=== PATIENT | male | born 1960 | race Caucasian/White ===

== ENCOUNTER 2018-08-11 07:21 | Emergency (ER) | payer BC ==
[~2018-08-11] VITALS: Ht 185.4 cm; Wt 231.3 kg
[2018-08-11] MEDS ORDERED: DIPHTH,PERTUSS(ACELL),TET TOX 0.5 ML DISP.SYRIN. VAX IM ONE (07:45)
[2018-08-11] MEDS ORDERED: LIDOCAINE 1% PF 30 ML VIAL. INJ ONE (07:45)
--- NOTE | 2018-08-11 08:01 | PHYS DOC ---
Past History Past Medical History: Diabetes, Other Past Surgical History: No Surgical History Smoking: Non-smoker Alcohol Use: None Drug Use: None Adult General Chief Complaint Chief Complaint: LACERATION/AVULSION HPI HPI Patient is a 57 year old male who presents with opening of laceration of right leg. Patient states he was not sure and hit his right leg with a metal and developed a laceration with bleeding. Patient denies other injuries and focal neuro deficit. Last tetanus immunization is unknown. Review of Systems Review of Systems Constitutional: Denies fever or chills [] Eyes: Denies change in visual acuity, redness, or eye pain [] HENT: Denies nasal congestion or sore throat [] Respiratory: Denies cough or shortness of breath [] Cardiovascular: No additional information not addressed in HPI [] GI: Denies abdominal pain, nausea, vomiting, bloody stools or diarrhea [] : Denies dysuria or hematuria [] Musculoskeletal: Denies back pain or joint pain [] Integument: Denies rash or skin lesions, reports laceration Neurologic: Denies headache, focal weakness or sensory changes [] Endocrine: Denies polyuria or polydipsia [] All other systems were reviewed and found to be within normal limits, except as documented in this note. Current Medications Current Medications Current Medications Medications (Trade) Dose Ordered Sig/Nenita Start Time Stop Time Status Last Admin Dose Admin Diphtheria/ Tetanus/Acell Pertussis (Boostrix) 0.5 ml ONCE ONCE 08/11/18 07:45 08/11/18 07:46 DC Lidocaine HCl (Lidocaine 1% Pf) 30 ml 1X ONCE 08/11/18 07:45 08/11/18 07:46 DC Allergies Allergies Allergies Coded Allergies Type Severity Reaction Last Updated Verified No Known Drug Allergies 03/03/16 No Physical Exam Physical Exam Constitutional: Well developed, well nourished, mild distress, non-toxic appearance, morbidly obese. [] HENT: Normocephalic, atraumatic. Eyes: PERRLA, EOMI, conjunctiva normal, no discharge. [] Neck: Normal range of motion, no tenderness, supple, no stridor. [] Cardiovascular:Heart rate regular rhythm, no murmur [] Lungs & Thorax: Bilateral breath sounds clear to auscultation [] Skin: Warm, dry, no erythema, no rash. [] Back: No tenderness, no CVA tenderness. [] Extremities: Flap laceration about 4 cm in right lower leg in anterior side with mild bleeding with change of color and circulation of flap part of laceration, 1 cm laceration of the second toe and 1.5 cm laceration of fourth toe in volar side, No tenderness, no cyanosis, no clubbing, ROM intact, no edema. [] Neurologic: Alert and oriented X 3, normal motor function, normal sensory function, no focal deficits noted. [] Psychologic: Affect normal, judgement normal, mood normal. [] Current Patient Data Vital Signs Vital Signs Date Time Temp Pulse Resp B/P (MAP) Pulse Ox O2 Delivery O2 Flow Rate FiO2 08/11/18 07:41 97.5 91 24 95 Room Air EKG EKG [] Radiology/Procedures Radiology/Procedures [address] [address] IMAGING REPORT Signed PATIENT: CALIN ROLDAN ACCOUNT: [id number] : 1960 LOCATION: ER AGE: 57 SEX: M EXAM STATUS: DEP ER ORD. PHYSICIAN: SUSAN PRUETT MD REASON: injury PROCEDURE: FOOT RIGHT 3V History: Wound in foot. Comparison: None. Findings: AP, lateral, and oblique views of the right foot. Extremity is in sock, limiting evaluation of fine detail. No acute osseous abnormality is identified. No convincing osteolysis to suggest radiographic changes of osteomyelitis is seen. Mild dorsal midfoot degeneration is present. Small-moderate plantar calcaneal enthesophyte is seen. Small Achilles tendon insertional enthesophyte is present. There is evidence of soft tissue swelling of the foot, especially along the dorsal aspect. Impression: 1. Soft tissue swelling. 2. No acute osseous abnormality identified. Electronically signed by: Ravi Prather MD (08/11/2018 10:54 AM) [facility] DICTATED AND SIGNED BY: RAVI PRATHER MD DATE: 08/11/18 1052 CC: SUSAN PRUETT MD; CARA RICARDO ~ Course & Med Decision Making Course & Med Decision Making Pertinent Imaging studies reviewed. (See chart for details) discharge: I've spoken with the patient and/or caregivers. I've explained the patient's condition, diagnosis and treatment plan based on information available to me at this time. I've answered the patient's and/or caregivers questions and addressed any concerns. The patient and/or caregivers have a good understanding the patient's diagnosis, condition and treatment plan as can be expected at this point. Vital signs have been stabilized. The patient's condition is stable for discharge from the emergency department. The patient will pursue further outpatient evaluation with her primary care provider or other designated consulting physician as outlined in the discharge instructions. Patient and/or caregivers are agreeable to this plan of care and follow-up instructions have been explained in detail. The patient and/or caregivers have received these instructions in written format and expressed understanding of these discharge instructions. The patient and her caregivers are aware that if any significant change in condition or worsening of symptoms should prompt him to immediately return to this of the closest emergency department. If an emergent department is not readily available I would encourage him to call 911. Dragon Disclaimer Dragon Disclaimer This electronic medical record was generated, in whole or in part, using a voice recognition dictation system. Laceration Repair Lac Repair Indication: Right leg, right second and fourth toe] Procedure: The patient was placed in the appropriate position and 2 mL of 1% lidocaine without epinephrine was injected and trunk laceration of right lower leg and after cleaning informed and applying Dermabond 3 suture of 3-0 Ethilon was placed and pressure dressing was applied. Right second toe 1 cm laceration was repaired with Dermabond and one suture of 3 -0 Ethilon. 1. 5 centimeter laceration of fourth right toe was minimal debridement and repaired with Dermabond and 1 suture of 3-0 Ethilon. Total repaired wound length: Exam half centimeter Other Items: [OTHER ITEMS] The patient tolerated the procedure well Complications:none Departure Departure: Impression: Primary Impression: Laceration of right lower leg Additional Impressions: Laceration of fourth toe of right foot Laceration of second toe of right foot Disposition: HOME, SELF-CARE (at 0920) Condition: IMPROVED Referrals: CARA RICARDO (PCP) Patient Instructions: Laceration Care, Adult, Sutured Wound Care, Tissue Adhesive Wound Care Additional Instructions: Keep wound clean and dry Follow-up with your primary care physician in 3-5 days Return to ER if not getting better Follow-up with your physician or ER in 2 weeks for suture removal Continue home pain medication Scripts Cephalexin (KEFLEX) 500 Mg Capsule 2 CAP PO Q12HR for infection, #28 CAP Prov: SUSAN PRUETT MD 08/11/18 Problem Qualifiers SUSAN PRUETT MD Aug 11, 2018 08:01
[2018-08-11] MEDS ORDERED: CEPHALEXIN 250 MG CAPSULE PO ONE (09:00)
[2018-08-11] MEDS ORDERED: CEPH-264 PO (09:23)
[2018-08-11 10:01] VITALS: BP 143/73
--- NOTE | 2018-08-11 10:57 | RAD ---
History: Wound in foot. Comparison: None. Findings: AP, lateral, and oblique views of the right foot. Extremity is in sock, limiting evaluation of fine detail. No acute osseous abnormality is identified. No convincing osteolysis to suggest radiographic changes of osteomyelitis is seen. Mild dorsal midfoot degeneration is present. Small-moderate plantar calcaneal enthesophyte is seen. Small Achilles tendon insertional enthesophyte is present. There is evidence of soft tissue swelling of the foot, especially along the dorsal aspect. Impression: 1. Soft tissue swelling. 2. No acute osseous abnormality identified. Electronically signed by: Ravi Soliman MD (08/11/2018 10:54 AM) [place] [id number]
== END 2018-08-11 09:55 | disposition home or self-care (01) ==
LOC: ER 07:21
DX: S81.811A Laceration without foreign body, right lower leg, initial encounter (principal); S91.114A Laceration without foreign body of right lesser toe(s) without damage to nail, initial encounter; E11.9 Type 2 diabetes mellitus without complications; W26.8XXA Contact with other sharp object(s), not elsewhere classified, initial encounter; Y93.89 Activity, other specified; Y92.89 Other specified places as the place of occurrence of the external cause; Y99.8 Other external cause status
CPT/HCPCS: 12002; 73630; 90471; 90715; 99284; J2001

== ENCOUNTER 2018-09-18 09:34 | Inpatient (IN) | payer BC ==
[~2018-09-18] VITALS: Ht 185.4 cm; Wt 235.9 kg
[~2018-09-18 09:34] MED LIST: CEPH-264 PO
[2018-09-18 11:16] VITALS: BP 167/89
[2018-09-18 13:42] LABS: BASO % 0 % (0-3); EOS # 0.6 x10^3/uL (0.0-0.7); EOS % 7 % (0-3); HEMATOCRIT 39.9 % (39.0-53.0); HEMOGLOBIN 12.9 g/dL (13.0-17.5); LYMPH # 1.2 x10^3/uL (1.0-4.8); LYMPH % 14 % (24-48); MEAN CORPUSCULAR HEMOGLOBIN 28 pg (25-35); MEAN CORPUSCULAR HGB CONC 32 g/dL (31-37); MEAN CORPUSCULAR VOLUME 88 fL (79-100); MONO # 0.7 x10^3/uL (0.0-1.1); MONO % 8 % (0-9); NEUT # 6.2 x10^3uL (1.8-7.7); NEUT % 71 % (31-73); PLATELET COUNT 250 x10^3/uL (140-400); RED BLOOD COUNT 4.53 x10^6/uL (4.30-5.70); RED CELL DISTRIBUTION WIDTH 15.8 % (11.5-14.5); WHITE BLOOD COUNT 8.7 x10^3/uL (4.0-11.0)
[2018-09-18] MEDS ORDERED: CRESTOR10 MG PO (13:51)
[2018-09-18] MEDS ORDERED: MODA200T2 PO (13:51)
[2018-09-18] MEDS ORDERED: SITA1TAB11 PO (13:51)
[2018-09-18] MEDS ORDERED: CHOL20009 PO (13:51)
[2018-09-18] MEDS ORDERED: MELA3TAB2 PO (13:51)
[2018-09-18] MEDS ORDERED: CITA20TA6 PO (13:51)
[2018-09-18] MEDS ORDERED: AMLO10TA6 PO (13:51)
[2018-09-18] MEDS ORDERED: FLAX100031 PO (13:51)
[2018-09-18] MEDS ORDERED: TAMS0.4C2 PO (13:51)
[2018-09-18] MEDS ORDERED: CRAN1CAP12 PO (13:51)
[2018-09-18] MEDS ORDERED: PHEN37.53 PO (13:51)
[2018-09-18] MEDS ORDERED: OLAN10TA9 PO (13:51)
[2018-09-18] MEDS ORDERED: HYDR-2765 PO (13:51)
[2018-09-18] MEDS ORDERED: PIOG30TA41 PO (13:51)
[2018-09-18] MEDS ORDERED: PHEN37.5 PO (13:51)
[2018-09-18] MEDS ORDERED: CARV3.1230 PO (13:51)
[2018-09-18 13:58] LABS: ALBUMIN 2.7 g/dL (3.4-5.0); ALBUMIN/GLOBULIN RATIO 0.6 (1.0-1.7); CALCIUM 8.8 mg/dL (8.5-10.1); CREATININE 1.7 mg/dL (0.7-1.3); GFR 41.8; POTASSIUM 4.6 mmol/L (3.5-5.1); TOTAL BILIRUBIN 0.4 mg/dL (0.2-1.0); TOTAL PROTEIN 7.3 g/dL (6.4-8.2)
[2018-09-18 14:58] VITALS: BP 155/96
--- NOTE | 2018-09-18 15:15 | HP ---
ADMIT DATE: 09/18/2018 HISTORY OF PRESENT ILLNESS: The patient is a 57-year-old male patient, who apparently fell around Thanksgiving, sustaining wounds in his outer aspect of the right leg above his right lateral malleolus and apparently he was supposed to change the dressing on a daily basis, but has not and he was seen today in the Emergency Room where the wounds seem to have worsened with generalized erythema that extends up to below the right knee joint. He has also some wounds on the plantar aspect of his second and third toe that are very tender to touch and was admitted for further evaluation and treatment with diagnosis of cellulitis and possible osteomyelitis of his right foot. PAST MEDICAL HISTORY: Significant for type 2 diabetes, hypertension, hyperlipidemia, generalized osteoarthritis of his back and both knee joints. He has also morbid obesity with obstructive sleep apnea, on BiPAP machine. He is also known to have benign prostatic hypertrophy. PAST SURGICAL HISTORY: Significant for arthroscopic surgery of both knees and has had also colonoscopy. ALLERGIES: He has no known drug allergies. MEDICATIONS: He is currently significant for tamsulosin 0.4 mg twice a day, Crestor 10 mg at bedtime, carvedilol 3.125 mg twice a day with meals, amlodipine besylate 10 mg twice a day, hydrocodone/APAP 7.5/325 one tablet 3 times a day, citalopram hydrobromide 20 mg p.o. daily, olanzapine 10 mg at bedtime, with breakfast phentermine 37.5 daily, modafinil 200 mg twice a day, sitagliptin phosphate plus metformin for Janumet twice a day, pioglitazone 30 mg daily, cholecalciferol vitamin D 2000 international units twice a day, cranberry extract, Azo cranberry soft gel 1 tablet twice a day, flaxseed oil 2400 mg p.o. b.i.d., and melatonin 20 mg at bedtime. FAMILY HISTORY: He has 1 brother, who is younger and in a hunting accident. His father at the age of 60 because of cancer, the primary of which is unknown. His mother at age of 55 because of pancreatic cancer. SOCIAL HISTORY: He is , has 1 son. Never smoked. Drinks alcohol very occasionally. 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 REVIEW OF SYSTEMS: The patient denied any blurring of vision, cataract, glaucoma or macular degeneration. Denied any earache, tinnitus or sensorineural deafness. Denied any nosebleeds, stuffy nose or postnasal drip. Denied any sore throat, sore tongue. Denied any nausea, vomiting, diarrhea or constipation. Denied any hematemesis, melena or hematochezia. Denied any dysuria, frequency or hematuria. Actually, did complain of frequency and nocturia. Denied any chest pain, shortness of breath, orthopnea, paroxysmal nocturnal dyspnea. Denied any cough, phlegm or hemoptysis. Denied any chills, rigors, or fever. Denied any dizziness, lightheadedness, or vertigo. He is unable to stand for a long time and can walk only for very short periods of time. He is in a scoter. PHYSICAL EXAMINATION: GENERAL: When I examined him, he was sitting comfortably in his scooter, in no apparent respiratory distress. No pallor, jaundice, cyanosis or thyromegaly. No jugular venous distension. No lower limb edema. VITAL SIGNS: His heart rate was 84, blood pressure was 167/89, temperature was 97.6, respiratory rate was 20, and oxygen saturation was 98%. HEAD, EYES, EARS, NOSE AND THROAT: Showed normocephalic, atraumatic. NECK: Supple. HEART: Showed normal first and second heart sounds. No gallop, rub or murmur. CHEST: Clear to auscultation. No crepitation or rhonchi. ABDOMEN: Distended, soft, nontender. No guarding or rigidity. No organomegaly. All hernial orifice intact. Bowel sounds normal. NEUROLOGIC: He was awake, alert, responding appropriately. All cranial nerves intact. EXTREMITIES: He moves extremities without difficulty. He is able to stand for a very short period of time and walks only for very short distances, but he normally ambulates with a scooter. SKIN: Showed he had an ulcer on the outer aspect of the right leg above the lateral malleolus with erythema extending proximally and also over the dorsum of the right foot and also he has blisters below his second and third toe that could be abscess. There are very tender to touch. LABORATORY DATA: Showed a white cell count of 8700, hemoglobin 12.6, hematocrit 39.9, MCV 88, platelet count of 250,000. His chemistry showed a serum sodium 138, potassium 4.6, chloride 103, bicarbonate 30, anion gap of 5, BUN 22, creatinine 1.7, estimated GFR was 42 mL per minute. His glucose was 126, calcium was 8.8. Total bilirubin, AST, ALT, alkaline phosphatase were normal. Total protein was 7.3, albumin was 2.7. He apparently had an x-ray of his right foot on 08/11/2018, which showed that there is soft tissue swelling, no acute osseous abnormality identified. He has mild dorsal mid foot degeneration is present. Small moderate plantar calcaneal enthesophyte is seen. Small Achilles tendon insertional intensified is present. There is evidence of soft tissue swelling of the foot, especially on the dorsal aspect. PLAN: My plan is to repeat his x-ray of his right foot, do two sets of cardiac enzymes, start him on IV antibiotics and decide on further management accordingly. CHRSI MOLINA MD DR: MICHAEL/alexander JOB#: [id number] / [id number]
--- NOTE | 2018-09-18 17:40 | RAD ---
EXAM: AP and lateral views of the right foot DATE: 09/18/2018 2:48 PM INDICATION: FELL PAIN, SWELLING, CELLULITIS COMPARISON: 08/11/2018 FINDINGS: No evidence of acute fracture or dislocation. Diffuse soft tissue swelling about the lower leg. Calcaneal enthesopathy. Midfoot degenerative changes are seen. Mild edema within Kagers fat pad is also seen. IMPRESSION: 1. Soft tissue swelling about the lower leg without evidence of acute fracture or dislocation. 2. Midfoot degenerative changes are seen. 3. Calcaneal enthesopathy. Electronically signed by: Jimenez Monteiro MD (09/18/2018 5:37 PM) [facility]
[2018-09-18] MEDS ORDERED: PIP/TAZO PER PHARMACY MC PRN (18:15)
[2018-09-18] MEDS: CARVEDILOL 3.125 MG TABLET PO SCH (18:32)
[2018-09-18] MEDS: metFORMIN 500 MG TABLET PO SCH (18:32)
[2018-09-18] MEDS: HYDROcodone/APAP 7.5/325MG 1 TAB TABLET PO SCH (18:36)
[2018-09-18] MEDS ORDERED: HYDROcodone/APAP 7.5/325MG 1 TAB TABLET PO ONE (19:00)
[2018-09-18 19:34] VITALS: BP 162/78
[2018-09-18] MEDS: PIPERACILLIN/TAZOBACTAM 3.375 GM in IV NORMAL SALINE 50ML 50 ML IV SCH (19:37)
[2018-09-18] MEDS: VANCOMYCIN PER PHARMACY MC PRN (19:58)
[2018-09-18] MEDS: VANCOMYCIN 2 GM in IV NORMAL SALINE 500ML 500 ML IV SCH (20:11)
[2018-09-18] MEDS: TAMSULOSIN 0.4 MG CAP.ER.24H. PO SCH (20:17)
[2018-09-18] MEDS: MODAFINIL 100 MG TABLET PO SCH (20:17)
[2018-09-18] MEDS: amLODIPine BESYLATE 10 MG TABLET PO SCH (20:17)
[2018-09-18] MEDS: MELATONIN 3 MG TABLET PO SCH (20:17)
[2018-09-18] MEDS: ATORVASTATIN CALCIUM 20 MG TABLET PO SCH (20:18)
[2018-09-18] MEDS: CHOLECALCIFEROL (VITAMIN D3) 1,000 UNIT TABLET PO SCH (20:18)
[2018-09-18] MEDS: OLANZapine 10 MG TABLET PO SCH (20:18)
[2018-09-18] MEDS ORDERED: NON FORMULARY ITEM (Cranberry Extract/Vit C (Azo Cranberry Softgel) 1 EACH) PO SCH (21:00)
[2018-09-18] MEDS ORDERED: FLAXSEED OIL 2400 MG PO SCH (21:00)
[2018-09-18 22:44] VITALS: BP 155/72
[2018-09-19] MEDS: PIPERACILLIN/TAZOBACTAM 3.375 GM in IV NORMAL SALINE 50ML 50 ML IV SCH ×4 (00:19→17:14)
[2018-09-19 05:16] VITALS: BP 143/84
[2018-09-19] MEDS: NON FORMULARY ITEM (Phentermine Hcl 1 CAP) PO SCH (08:00)
[2018-09-19] MEDS: metFORMIN 500 MG TABLET PO SCH ×2 (08:18→17:14)
[2018-09-19] MEDS: PIOGLITAZONE 15 MG TABLET. PO SCH (08:19)
[2018-09-19] MEDS: HYDROcodone/APAP 7.5/325MG 1 TAB TABLET PO SCH ×3 (08:19→21:02)
[2018-09-19] MEDS: CHOLECALCIFEROL (VITAMIN D3) 1,000 UNIT TABLET PO SCH ×2 (08:19→20:57)
[2018-09-19] MEDS: CARVEDILOL 3.125 MG TABLET PO SCH ×2 (08:19→17:14)
[2018-09-19] MEDS: LINAGLIPTIN 5 MG TABLET PO SCH (08:19)
[2018-09-19] MEDS: CITALOPRAM 20 MG TABLET. PO SCH (08:20)
[2018-09-19] MEDS: MODAFINIL 100 MG TABLET PO SCH ×2 (08:20→20:58)
[2018-09-19] MEDS: TAMSULOSIN 0.4 MG CAP.ER.24H. PO SCH ×2 (08:20→20:57)
[2018-09-19] MEDS: VANCOMYCIN 2 GM in IV NORMAL SALINE 500ML 500 ML IV SCH ×2 (08:22→20:37)
[2018-09-19] MEDS: amLODIPine BESYLATE 10 MG TABLET PO SCH ×2 (08:22→20:58)
[2018-09-19] MEDS ORDERED: NON FORMULARY ITEM (Phentermine Hcl 1 TAB) PO SCH (09:00)
[2018-09-19 11:24] VITALS: BP 143/83
[2018-09-19] MEDS: LACTOBACILLUS RHAMNOSUS GG 1 CAPSULE. PO SCH ×2 (11:48→20:58)
[2018-09-19] MEDS ORDERED: ACETAMINOPHEN 325 MG TABLET PO PRN ×2 (12:00→13:30)
--- NOTE | 2018-09-19 12:32 | RAD ---
Indication: Nonhealing right foot wound TECHNIQUE: Grayscale, color Doppler and spectral waveform images of the right lower extremity arteries. COMPARISON: None FINDINGS: Right side: Triphasic waveform seen in the X [employer] with velocity of 99 cm/s. Triphasic waveform seen in the proximal SFA with velocity of 100 cm/s. Triphasic waveform seen in the profunda femoral artery with velocity of 40 cm/s. Monophasic waveforms seen in the mid SFA with velocity of 124 cm/s. Monophasic waveforms seen in the distal SFA with velocity 120 cm/s. Monophasic waveforms seen in the popliteal artery with velocity of 81 cm/s. Monophasic waveforms seen in the distal posterior tibial artery with velocity of 60 cm/s. The proximal posterior tibial arteries are visualized. Monophasic waveform is seen in the dorsalis pedis artery with velocity of 69 cm/s. Anterior tibial artery is not visualized. Peroneal artery is not visualized. IMPRESSION: 1. Nonvisualization of proximal PLY CUTTER, OLIVER and peroneal artery may be secondary to severe stenosis, body habitus or occlusion. Further evaluation with conventional digital subtraction angiography may be of additional benefit. 2. Moderate supra popliteal atherosclerotic disease without focal elevated velocity to suggest high-grade stenosis. Electronically signed by: Beka Jackson DO (09/19/2018 12:28 PM) [facility]
[2018-09-19 16:05] VITALS: BP 158/87
[2018-09-19 19:00] VITALS: BP 155/89
--- NOTE | 2018-09-19 19:14 | PN ---
DATE: 09/19/2018 SUBJECTIVE: The patient is resting, slightly propped up in bed, in no apparent distress. On questioning him, he apparently did complain of nocturia and inability to sleep and needed to go to the bathroom every hour. Denied any other complaint. OBJECTIVE GENERAL: On examining him, he looked well and was clearly in no apparent respiratory distress. No pallor, jaundice, cyanosis, or thyromegaly. No jugular venous distension. No lower limb edema. VITAL SIGNS: His heart rate was 100, blood pressure was 143/83, temperature was 98.2, respiratory rate 22, and oxygen saturation was 91% on room air. HEAD, EYES, EARS, NOSE AND THROAT: Showed normocephalic, atraumatic. NECK: Supple. HEART: Showed normal first and second heart sounds with no gallop, rub or murmur. CHEST: Clear to auscultation. No crepitation or rhonchi. ABDOMEN: Distended, soft, nontender. NEUROLOGIC: He was awake, alert, responding appropriately. All cranial nerves are intact. EXTREMITIES: He moves his extremities without difficulty, although he only stands for a short period of time and walks also for a short distance. He is mostly in a laure chair. His intake was 1580, no output was recorded. LABORATORY DATA AND IMAGING: Lab work showed that his white cell count was 8700, hemoglobin 12.9, hematocrit 39, MCV 88, and platelet count 250,000 with normal manual differential. His sedimentation rate was 14 mm per hour. Serum sodium 138, potassium 4.6, chloride 105, bicarbonate 30, anion gap of 5, BUN 22, creatinine 1.7, estimated GFR was 42 mL per minute, his glucose 126, calcium was 8.8. Total bilirubin, AST, ALT, alkaline phosphatase were normal. C-reactive protein was 18 mg/dL. His total protein was 7.2, albumin was 2.7. ASSESSMENT: Right lower extremity cellulitis with blisters on the plantar aspect of the right second and third toe. The x-ray showed no evidence of any bone destruction and showed that it is soft tissue swelling about the lower leg without evidence of acute fracture or dislocation, mid foot degenerative changes are seen, and calcaneal enthesopathy. Other medical problems include morbid obesity, obstructive sleep apnea, hypertension, type 2 diabetes, and given his size we could not arrange for him to have a bone scan. The x-ray was unremarkable. We will continue with IV antibiotic and we will switch him hopefully on Friday to oral antibiotic to continue treatment as an outpatient. CHRIS MOLINA MD DR: MICHAEL/alexander JOB#: [id number] / [id number]
[2018-09-19] MEDS: ATORVASTATIN CALCIUM 20 MG TABLET PO SCH (20:57)
[2018-09-19] MEDS: MELATONIN 3 MG TABLET PO SCH (20:58)
[2018-09-19] MEDS: ENOXAPARIN ** NOTE DOSE ** SYRINGE SQ SCH (20:59)
[2018-09-19] MEDS: OLANZapine 10 MG TABLET PO SCH (20:59)
[2018-09-19 23:00] VITALS: BP 150/84
[2018-09-20] MEDS: PIPERACILLIN/TAZOBACTAM 3.375 GM in IV NORMAL SALINE 50ML 50 ML IV SCH ×4 (00:13→17:52)
[2018-09-20 07:25] VITALS: BP 197/89
[2018-09-20 08:01] LABS: VANC TR 23.6 mcg/mL (10.0-20.0)
[2018-09-20] MEDS: NON FORMULARY ITEM (Phentermine Hcl 1 CAP) PO SCH (08:15)
[2018-09-20] MEDS: VANCOMYCIN PER PHARMACY MC PRN (08:18)
[2018-09-20] MEDS: LACTOBACILLUS RHAMNOSUS GG 1 CAPSULE. PO SCH ×2 (08:39→21:22)
[2018-09-20] MEDS: MODAFINIL 100 MG TABLET PO SCH ×2 (08:39→21:22)
[2018-09-20] MEDS: ENOXAPARIN ** NOTE DOSE ** SYRINGE SQ SCH ×2 (08:39→21:24)
[2018-09-20] MEDS: PIOGLITAZONE 15 MG TABLET. PO SCH (08:39)
[2018-09-20] MEDS: metFORMIN 500 MG TABLET PO SCH ×2 (08:40→17:50)
[2018-09-20] MEDS: CHOLECALCIFEROL (VITAMIN D3) 1,000 UNIT TABLET PO SCH ×2 (08:40→21:24)
[2018-09-20] MEDS: amLODIPine BESYLATE 10 MG TABLET PO SCH ×2 (08:40→21:23)
[2018-09-20] MEDS: LINAGLIPTIN 5 MG TABLET PO SCH (08:40)
[2018-09-20] MEDS: CARVEDILOL 3.125 MG TABLET PO SCH ×2 (08:40→17:51)
[2018-09-20] MEDS: TAMSULOSIN 0.4 MG CAP.ER.24H. PO SCH ×2 (08:40→21:22)
[2018-09-20] MEDS: HYDROcodone/APAP 7.5/325MG 1 TAB TABLET PO SCH ×3 (08:41→21:35)
[2018-09-20] MEDS: CITALOPRAM 20 MG TABLET. PO SCH (08:41)
[2018-09-20 11:16] VITALS: BP 174/84
[2018-09-20 14:52] VITALS: BP 148/76
--- NOTE | 2018-09-20 16:10 | PN ---
DATE: 09/20/2018 SUBJECTIVE: The patient is resting, almost flat in bed, in no apparent respiratory distress. On questioning him, he denied any complaint. The nursing staff has changed the dressing on her wounds on the back of her right thigh, right leg and the plantar aspect of the right foot. His erythema is improving. PHYSICAL EXAMINATION: GENERAL: When I examined him, he looked well and was clearly in no apparent respiratory distress, pale, but no jaundice, cyanosis, or thyromegaly. No jugular venous distention. No limb edema. VITAL SIGNS: His heart rate was 95, blood pressure was 197/89, temperature was 97.2, respiratory rate 20, and oxygen saturation was 90% on room air. HEAD, EYES, EARS, NOSE AND THROAT: Showed normocephalic, atraumatic. NECK: Supple. HEART: Showed normal first and second heart sounds. No gallop, rub or murmur. CHEST: Clear to auscultation. No crepitation or rhonchi. ABDOMEN: Distended, soft, nontender. NEUROLOGIC: He was awake, alert, responding appropriately. Cranial nerves are intact. He moves extremities spontaneously, although he is mostly bedbound, chair bound. He can stand for a very short period of time and walks very short distances. He has wounds on the posterior aspect of the right thigh, on the outer aspect of the right leg above the lateral malleolus, has also with surrounding cellulitis. He has also blisters on the plantar aspect of his second and third toe that are improving. His intake was 1600. No output was recorded. LABORATORY DATA: Showed that his blood sugars were actually well within acceptable range. His white cell count on admission 8700, hemoglobin 13, hematocrit 39, MCV 88 and platelet count 250,000. His chemistry showed that his BUN is 22 and creatinine 1.7. PLAN: My plan is to continue with the IV antibiotics for today and I will repeat all his lab works tomorrow. We will switch him to oral antibiotics tomorrow and he can be discharged home with home health. To continue treatment of his cellulitis and wounds on his right lower extremity. CHRIS MOLINA MD DR: MICHAEL/alexander JOB#: [id number] / [id number]
[2018-09-20 18:43] VITALS: BP 185/94
[2018-09-20] MEDS ORDERED: VANCOMYCIN 2 GM in IV NORMAL SALINE 500ML 500 ML IV SCH (20:00)
[2018-09-20] MEDS: MELATONIN 3 MG TABLET PO SCH (21:22)
[2018-09-20] MEDS: ATORVASTATIN CALCIUM 20 MG TABLET PO SCH (21:22)
[2018-09-20] MEDS: OLANZapine 10 MG TABLET PO SCH (21:22)
[2018-09-20 23:27] VITALS: BP 163/82
[2018-09-21] MEDS: PIPERACILLIN/TAZOBACTAM 3.375 GM in IV NORMAL SALINE 50ML 50 ML IV SCH ×3 (00:20→11:55)
[2018-09-21 06:22] LABS: HEMATOCRIT 40.3 % (39.0-53.0); HEMOGLOBIN 12.9 g/dL (13.0-17.5); RED BLOOD COUNT 4.59 x10^6/uL (4.30-5.70); RED CELL DISTRIBUTION WIDTH 15.3 % (11.5-14.5); WHITE BLOOD COUNT 12.4 x10^3/uL (4.0-11.0)
[2018-09-21 06:36] LABS: ALBUMIN 2.3 g/dL (3.4-5.0); ALBUMIN/GLOBULIN RATIO 0.5 (1.0-1.7); CALCIUM 9.2 mg/dL (8.5-10.1); CREATININE 1.4 mg/dL (0.7-1.3); GFR 52.2; POTASSIUM 4.7 mmol/L (3.5-5.1); TOTAL BILIRUBIN 0.7 mg/dL (0.2-1.0)
[2018-09-21 07:03] VITALS: BP 136/72
[2018-09-21] MEDS: NON FORMULARY ITEM (Phentermine Hcl 1 CAP) PO SCH (08:00)
[2018-09-21] MEDS: CITALOPRAM 20 MG TABLET. PO SCH (09:18)
[2018-09-21] MEDS: CHOLECALCIFEROL (VITAMIN D3) 1,000 UNIT TABLET PO SCH (09:18)
[2018-09-21] MEDS: LACTOBACILLUS RHAMNOSUS GG 1 CAPSULE. PO SCH (09:18)
[2018-09-21] MEDS: metFORMIN 500 MG TABLET PO SCH (09:18)
[2018-09-21] MEDS: LINAGLIPTIN 5 MG TABLET PO SCH (09:18)
[2018-09-21] MEDS: PIOGLITAZONE 15 MG TABLET. PO SCH (09:18)
[2018-09-21] MEDS: TAMSULOSIN 0.4 MG CAP.ER.24H. PO SCH (09:18)
[2018-09-21] MEDS: amLODIPine BESYLATE 10 MG TABLET PO SCH (09:19)
[2018-09-21] MEDS: CARVEDILOL 3.125 MG TABLET PO SCH (09:19)
[2018-09-21] MEDS: MODAFINIL 100 MG TABLET PO SCH (09:19)
[2018-09-21] MEDS: HYDROcodone/APAP 7.5/325MG 1 TAB TABLET PO SCH (09:19)
[2018-09-21] MEDS: ENOXAPARIN ** NOTE DOSE ** SYRINGE SQ SCH (09:20)
[2018-09-21 11:11] VITALS: BP 163/88
[2018-09-21] MEDS ORDERED: AMOX1TAB61 PO (12:04)
--- NOTE | 2018-09-21 12:07 | DISCH ---
HOME HEALTH DISCHARGE/MEDS DISCHARGE INFORMATION: Condition on Discharge: Stable CODE STATUS: Code Status: Full HOME HEALTH: Face to Face: I certify this patient is under my care and that I, or a nurse practitioner or physician's economist research assistant working with me, had a face to face encounter that meets the physician face to face encounter requirements with this patient on [Date]. Medical Condition(s): DJD Intermediate For: Wound Care POST DISCHARGE ORDERS: Activity Instructions for Disc: Resume previous activity CERTIFICATION STATEMENT: Certification Statement: Based on the above finding, I certify that this patient is confined to the home and needs intermittent correction care, physical therapy and/or speech therapy, or continues to need occupational therapy.~ This patient is under my care, and I have initiated the establishment of the plan of care.~ This patient will be followed by myself or a community physician who will periodically review the plan of care. DISCHARGE MEDICATIONS: Home Meds Reported Medications Cholecalciferol (Vitamin D3) (VITAMIN D3) 2,000 Unit Capsule, 2000 UNIT PO BID for Supplement 09/18/18 Cranberry Extract/Vit C (AZO CRANBERRY SOFTGEL) 1 Each Capsule, 1 EACH PO BID for Supplement 09/18/18 Flaxseed Oil (FLAXSEED) 1,000 Mg Capsule, 2400 MG PO BID for Supplement 09/18/18 Melatonin (MELATONIN) 3 Mg Tablet, 20 MG PO HS for Sleep 09/18/18 Phentermine Hcl (PHENTERMINE HCL) 37.5 Mg Tablet, 1 TAB PO DAILY for Weight Loss 09/18/18 Pioglitazone Hcl (ACTOS) 30 Mg Tablet, 1 TAB PO DAILY for Diabetes 09/18/18 Olanzapine (OLANZAPINE) 10 Mg Tablet, 1.5 TAB PO QHS for Sleepiness 09/18/18 Sitagliptin Phos/Metformin Hcl (JANUMET 50-1,000 MG TABLET) 1 Each Tablet, 1 TAB PO BID for Diabetes 09/18/18 Tamsulosin Hcl (TAMSULOSIN HCL) 0.4 Mg Cap.er.24h, 1 CAP PO BID for Urinary Retention 09/18/18 Citalopram Hydrobromide (CITALOPRAM HBR) 20 Mg Tablet, 20 MG PO DAILY for Depression 09/18/18 Rosuvastatin Calcium (CRESTOR) 10 Mg Tablet, 1 TAB PO DAILY for High Cholesterol 09/18/18 Carvedilol (CARVEDILOL ) 3.125 Mg Tablet, 3.125 MG PO BIDWMEALS for Hypertension 09/18/18 Amlodipine Besylate (AMLODIPINE BESYLATE) 10 Mg Tablet, 1 TAB PO BID for Hypertension 09/18/18 Modafinil (MODAFINIL) 200 Mg Tablet, 200 MG PO BID for Narcolepsy 09/18/18 Hydrocodone Bit/Acetaminophen (HYDROCODONE-APAP 7.5-325 ) 1 Each Tablet, 1 TAB PO TID for Pain 09/18/18 Phentermine Hcl (PHENTERMINE HCL) 37.5 Mg Capsule, 1 CAP PO DAILYWBKFT for Narcolepsy 09/18/18 CHRIS MOLINA MD Sep 21, 2018 12:07
--- NOTE | 2018-09-21 15:14 | DS ---
DATE OF DISCHARGE: 09/21/2018 HOSPITAL COURSE: The patient is a 57-year-old male patient who was admitted from his primary care physician's office directly as he has nonhealing wounds on the outer aspect of the right leg above his lateral malleolus as well as the posterior aspect of the right thigh. We did start him on IV antibiotic in the form of Zosyn and vancomycin and was seen by the wound care team. We did an x-ray of his right foot, which showed soft tissue swelling about the lower leg without evidence of acute fracture or dislocation. Midfoot degenerative changes are seen, calcaneal enthesopathy. Arterial Doppler ultrasound showed nonvisualization of the proximal posterior tibial artery, anterior tibial artery, and peroneal artery may be secondary to severe stenosis, body habitus, or occlusion. Further evaluation with conventional digital substraction angiography may be of additional benefit. Moderate ____ atherosclerotic disease without focal elevation of velocity suggesting high-grade stenosis. Clinically, the tibialis posterior and dorsalis pedis are easily palpable. His erythema has largely subsided and the plan is for him to be discharged home with home health to continue with oral antibiotic and wound care. PHYSICAL EXAMINATION: GENERAL: When I saw him today, he looked well and was clearly in no apparent respiratory distress. No pallor, jaundice, cyanosis, or thyromegaly. No jugular venous distention. No limb edema. VITAL SIGNS: His heart rate was 103, blood pressure was 163/88, temperature was 98.3, respiratory rate was 20, and oxygen saturation was 92% on 2 liters of oxygen. HEAD, EYES, EARS, NOSE AND THROAT: Normocephalic, atraumatic. NECK: Supple. HEART: Showed normal first and second sounds. No gallop, rub, or murmur. CHEST: Clear to auscultation. No crepitation or rhonchi. ABDOMEN: Distended, soft, nontender. NEUROLOGIC: He was awake, alert, responding appropriately. All cranial nerves intact. He moves extremities without difficulty. His intake over the last 24 hours was 1500 and no output was recorded. LABORATORY DATA: His lab work today showed a white cell count of 12,400, hemoglobin 13, hematocrit 40, MCV 88, and platelet count 234,000. Serum sodium was 135, potassium 4.7, chloride 100, bicarbonate 27, anion gap of 8, BUN 15, creatinine 1.4. Estimated GFR was 62 mL per minute. His glucose was 134, calcium was 9.2. Total bilirubin, AST, ALT, alkaline phosphatase were normal. Total protein was 7, albumin 2.3. His vancomycin trough level was 23.6. So far, his blood cultures are negative. DISCHARGE MEDICATIONS: The patient will be discharged home with home health to continue on Augmentin 875 mg twice a day for 10 days, amlodipine 10 mg once a day, carvedilol 3.125 mg twice a day, cholecalciferol vitamin D 2000 [employer] Unit twice a day, citalopram hydrobromide 20 mg daily, cranberry extract 200 mg once a day, flaxseed oil 2,400 mg twice a day, hydrocodone/APAP 7.5/325 one tablet 3 times a day, melatonin 20 mg at bedtime, modafinil 200 mg twice a day, olanzapine, he takes 15 mg at bedtime, phentermine 37.5 mg daily with breakfast, pioglitazone 30 mg once a day, Crestor 10 mg at bedtime, sitagliptin/metformin one tablet twice a day, and tamsulosin 0.4 mg twice a day. FINAL DISCHARGE DIAGNOSES: Right lower extremity cellulitis with wounds on the outer aspect of right leg above the lateral malleolus and the posterior aspect of the right thigh. To continue wound care at home with home health. Other medical problems include morbid obesity, obstructive sleep apnea, type 2 diabetes reasonably controlled, hypertension, hyperlipidemia, generalized osteoarthritis of his back and both knees. He has also morbid obesity, obstructive sleep apnea, on BiPAP machine, benign prostatic hypertrophy. CHRIS MOLINA MD DR: MICHAEL/alexander JOB#: [id number] / [id number]
== END 2018-09-21 15:00 | disposition home health service (06) | DRG 565 ==
LOC: 1 SOUTH 10:47
PROVIDERS: ADMIT Internal Medicine; ATTEND Internal Medicine
PROC: 5A09357 Assistance with Respiratory Ventilation, Less than 24 Consecutive Hours, Continuous Positive Airway Pressure (ICD-10-PCS; principal; 2018-09-18)
PROC: 5A09357 Assistance with Respiratory Ventilation, Less than 24 Consecutive Hours, Continuous Positive Airway Pressure (ICD-10-PCS; 2018-09-20)
DX: M77.30 Calcaneal spur, unspecified foot (principal); L03.115 Cellulitis of right lower limb; Z68.44 Body mass index [BMI] 60.0-69.9, adult; E11.9 Type 2 diabetes mellitus without complications; E66.01 Morbid (severe) obesity due to excess calories; E78.5 Hyperlipidemia, unspecified; G47.00 Insomnia, unspecified; G47.33 Obstructive sleep apnea (adult) (pediatric); I10 Essential (primary) hypertension; M15.9 Polyosteoarthritis, unspecified; N40.1 Benign prostatic hyperplasia with lower urinary tract symptoms; Z80.0 Family history of malignant neoplasm of digestive organs
CPT/HCPCS: 36415; 73620; 80053; 80202; 82947; 85025; 85027; 85651; 86140; 87040; 90471; 90756; 93923; J1650; J2543; J3370; J7040; Q2035

== ENCOUNTER → 2018-10-27 | Outpatient (CLI) | payer BC ==
[~2018-10-27] MED LIST changes: +AMLO10TA6 PO; +AMOX1TAB61 PO; +CARV3.1230 PO; +CHOL20009 PO; +CITA20TA6 PO; +CRAN1CAP12 PO; +CRESTOR10 MG PO; +FLAX100031 PO; +HYDR-2765 PO; +MELA3TAB2 PO; +MODA200T2 PO; +OLAN10TA9 PO; +PHEN37.5 PO; +PHEN37.53 PO; +PIOG30TA41 PO; +SITA1TAB11 PO; +TAMS0.4C2 PO
[2018-10-27] MEDS: PERFLUTREN PROTEIN-A MICROSPHR 0.22 MG/ML 3 ML VIAL. IV ONE (11:57)
--- NOTE | 2018-10-27 16:14 | CARD ---
MR#: [id number] Date of Study: 10/27/2018 Ordering Physician: DANITZA ALONZO, Referring Physician: DANITZA ALONZO, Tech: Ashley Reese RDCS APPROVED REPORT EXAM: Two-dimensional and M-mode echocardiogram with Doppler and color Doppler. Other Information Quality : Technically Limited Rhythm : NSRTechnically limited study due to morbid obesity INDICATION Diastolic Heart Failure Echo Enhancing Agent Indication: Endocardial border delineation Agent/Amount Used: [id number] 2D DIMENSIONS RVDd3.1 (2.9-3.5cm)Left Atrium(2D)4.1 (1.6-4.0cm) IVSd1.3 (0.7-1.1cm)Aortic Root(2D)3.8 (2.0-3.7cm) LVDd6.1 (3.9-5.9cm)LVOT Diameter2.9 (1.8-2.4cm) PWd1.3 (0.7-1.1cm)LVDs5.2 (2.5-4.0cm) FS (%) 20.0 %SV53.7 ml Aortic Valve AoV Peak Marquis.164.3cm/sAoV VTI27.8cm AO Peak GR.10.8mmHgLVOT Peak Marquis.98.8cm/s LVOT VTI 17.37cmAO Mean GR.6mmHg NATHANIEL (VMAX)3.87fd0GYL (VTI)4.02cm2 AI P 1/2 [id number] Mitral Valve MV E Mcjwzskg09.9cm/sMV DECEL [id number] MV A Zuxueqcv352.9cm/sE/A Ratio0.9 Pulmonary Vein S1 Mqifhzsd02.3cm/sD2 Pnqwxsgq77.5cm/s LEFT VENTRICLE Technically difficult study. The Left Ventricle is mildly dilated. There is mild concentric left vent ricular hypertrophy. Left ventricle systolic function is mildly impaired. The Ejection Fraction is es timated at 40%. There is mild global hypokinesis of the left ventricle. Transmitral Doppler flow adri eleonora is Grade I-abnormal relaxation pattern. RIGHT VENTRICLE The right ventricle is mildly dilated. The right ventricular systolic function is normal. ATRIA The left atrium is mildly dilated. The right atrium is mildly dilated. The interatrial septum is inta ct with no evidence for an atrial septal defect or patent foramen ovale as noted on 2-D or Doppler im aging. AORTIC VALVE The aortic valve is calcified but opens well. Doppler and Color Flow revealed mild aortic regurgitati on. There is no significant aortic valvular stenosis. MITRAL VALVE The mitral valve is calcified but opens well. There is no evidence of mitral valve prolapse. There is no mitral valve stenosis. Doppler and Color Flow revealed trace mitral valve regurgitation. TRICUSPID VALVE The tricuspid valve is normal in structure and function. Doppler and Color Flow revealed no tricuspid valve regurgitation noted. There is no tricuspid valve stenosis. PULMONIC VALVE The pulmonic valve is not well visualized. Doppler and Color Flow revealed no pulmonic valvular regur gitation. There is no pulmonic valvular stenosis. GREAT VESSELS The aortic root is normal in size. The ascending aorta is mildly dilated at 3.6 cm. The IVC is dilate d. PERICARDIAL EFFUSION There is no evidence of significant pericardial effusion. Critical Notification Critical Value: No <Conclusion> Technically difficult study. The Left Ventricle is mildly dilated. Left ventricle systolic function is mildly impaired. The Ejection Fraction is estimated at 40%. There is mild global hypokinesis of the left ventricle. There is mild concentric left ventricular hypertrophy. There is no significant aortic valvular stenosis. Doppler and Color Flow revealed mild aortic regurgitation. Doppler and Color Flow revealed trace mitral valve regurgitation. Doppler and Color Flow revealed no tricuspid valve regurgitation noted. The ascending aorta is mildly dilated at 3.6 cm. Signed by : Elvin Case MD Electronically Approved : 10/27/2018 16:12:02
== END | disposition home or self-care (01) ==
LOC: ECHO 10:13
PROVIDERS: ATTEND Internal Medicine Cardiovascular Disease
DX: I35.1 Nonrheumatic aortic (valve) insufficiency (principal); I11.0 Hypertensive heart disease with heart failure; I50.30 Unspecified diastolic (congestive) heart failure; E11.9 Type 2 diabetes mellitus without complications; E66.8 Other obesity; E78.5 Hyperlipidemia, unspecified
CPT/HCPCS: C8929; Q9956